=== PATIENT | female | born 1960 | race Caucasian/White ===

== ENCOUNTER → 2020-04-24 | Outpatient (CLI) | payer MEDICARE | END | disposition home or self-care (01) | LOC: PLD 12:57 → LAB SHORT 12:57 | DX: L90.0 Lichen sclerosus et atrophicus (principal) | CPT/HCPCS: 88305 ==

== ENCOUNTER 2025-04-14 17:59 | Emergency (ER) | payer MEDICARE ==
[~2025-04-14] VITALS: Ht 162.6 cm; Wt 67.6 kg
[2025-04-14 18:01] VITALS: BP 159/85
== END 2025-04-14 19:38 | disposition home or self-care (01) ==
LOC: ER 17:59
DX: S01.111A Laceration without foreign body of right eyelid and periocular area, initial encounter (principal); I48.91 Unspecified atrial fibrillation; Z79.01 Long term (current) use of anticoagulants; Z88.5 Allergy status to narcotic agent; W19.XXXA Unspecified fall, initial encounter
CPT/HCPCS: 12011; 70450; 90715; 99283-25

== ENCOUNTER 2025-05-03 11:01 | Day surgery (SDC) | payer MEDICARE | END 2025-05-03 17:40 | disposition home or self-care (01) | LOC: ORSCSDS 11:01 | PROC: 0RRJ00Z Replacement of Right Shoulder Joint with Reverse Ball and Socket Synthetic Substitute, Open Approach (ICD-10-PCS; principal; 2025-05-03) | DX: M19.011 Primary osteoarthritis, right shoulder (principal); I10 Essential (primary) hypertension; I48.91 Unspecified atrial fibrillation; Z79.01 Long term (current) use of anticoagulants; Z79.899 Other long term (current) drug therapy ==